=== PATIENT | male | born 1980 | race Caucasian/White ===

== ENCOUNTER 2019-11-28 01:21 | Emergency (ER) | payer BC, SELFPAY ==
[2019-11-28 01:25] VITALS: BP 136/84; PULSE 73; RESP 16; TEMP 36.6; O2SAT 98
--- NOTE | 2019-11-28 01:35 | ED.GENADUL_ITS ---
Discharge Plan Disposition Patient Disposition: HOME Condition: Good Discharge Details Chief Complaint: Laceration Clinical Impression: Laceration of brow without complication Primary Care Provider: Perry Morales ED Provider: Miles Steiner Home Meds and New Rx's Prescriptions: Continued metoprolol tartrate 25 MG tablet 25 mg PO PRN PRNQty: 20 RF: 0 levothyroxine [Synthroid] 175 mcg tablet 175 mcg PO DAILY RF: 0 Discharge Instructions Instructions: Skin Adhesive Care (ED), Facial Laceration (ED) Additional Instructions: The skin glue and Steri-Strips will function for wound healing. Your tetanus has been updated today. Please leave the dressing on for 24 hours, change the bandage daily. Do your best to keep the area dry and clean for the next 7 to 10 days. Do not directly soak the area. Watch for any signs of infection and return if any increasing redness, swelling, pain, drainage. You may remove the strips gently with soap and water after 7 to 10 days. Referrals: Perry Morales [Primary Care Provider] - Medical Decision Making 39-year-old male with past medical history of thyroid disorder presents for a left brow laceration. Patient states that he woke up this evening after a dream and was hit in the left brow by a board that he had lying up against a wall. He came to the ER for further evaluation. Uncertain as to when his last tetanus shot was. He denies any numbness tingling weakness vision changes. The board was relatively small. Laceration is present over the left brow. No other complaints at this time. No other modifying factors. Exam demonstrates a small 1 cm notably superficial laceration over the left brow, no deep component whatsoever. More so a slight shaving under the skin. Able to raise his eyebrow well, no vision changes. Physical exam otherwise shows no signs of trauma. Discussed sutures versus skin glue, based on the current scenario, and the notable superficial component, we jointly elected for the skin glue and Steri-Strips. This was performed, patient tolerated this well. We will update tetanus here. Discussed red flags which to return. I have extensively reviewed the treatment plan and discharge instructions with the patient. I have addressed all patient concerns at this time. The patient was made aware of what symptoms to monitor for that would warrant a return to the emergency department. Discussed the plan with the patient, they demonstrate verbal understanding and agreement with our assessment and plan at this time. HPI General Date/Time Provider Initiated Documentation: 11/28/19 01:23 . HPI Narrative: 39-year-old male with past medical history of thyroid disorder presents for a left brow laceration. Patient states that he woke up this evening after a dream and was hit in the left brow by a board that he had lying up against a wall. He came to the ER for further evaluation. Uncertain as to when his last tetanus shot was. He denies any numbness tingling weakness vision changes. The board was relatively small. Laceration is present over the left brow. No other complaints at this time. No other modifying factors. Related Data Home Medications Medication Instructions Recorded Confirmed metoprolol tartrate 25 mg PO PRN PRN #20 tab 07/02/17 11/28/19 levothyroxine [Synthroid] 175 mcg PO DAILY 11/28/19 11/28/19 Previous Rx's Medication Instructions Recorded metoprolol tartrate 25 mg PO PRN PRN #20 tab 07/02/17 Allergies Allergy/AdvReac Type Severity Reaction Status Date / Time loratadine [From Claritin] AdvReac Intermediate Other (See Unverified 11/28/19 01:29 Comment) General Stated Complaint: Laceration XENIA: 4 Review of Systems All systems reviewed & are unremarkable except as noted in HPI and below [facility], [facility] Medical History Hypothyroidism (Chronic) Social History Smoking/Tobacco Use Status: Current every day Alcohol Intake: current Drug use: Never Substance use type: does not use Do you feel safe at home: Yes Do you feel safe in your relationship?: Yes Exam Narrative Exam Narrative: 1.Const: Well-nourished, Well-developed, appearing stated age 2.Eyes: PERRL, no conjunctival injection, and symmetrical lids. 3.ENT: Atraumatic external nose and ears. Moist MM. Neck: Symmetric, trachea midline, No thyromegaly. 4.CVS: +S1/S2, No murmurs or gallops. Peripheral pulses 2+ and equal in all extremities. Brisk capillary refill in all extremities. 5.RESP: Unlabored respiratory effort. Clear to auscultation bilaterally. No wheezes rales or rhonchi 6.GI: Soft, Nontender/Nondistended, No hepatosplenomegaly. No guarding or rebound. 7.MSK: Normocephalic/Atraumatic, Extremities w/o deformity or ttp No cyanosis or clubbing, Normal movement of all extremities 8.Skin: Warm, Dry. Patient's left brow demonstrates a notably superficial 1 cm laceration, linear, no deep component. 9.Neuro: aerial installer II-XII grossly intact. Sensation grossly intact, no focal neurologic deficits. 10.Psych: (AAO) x3. Appropriate mood and affect Course Vital Signs Vital signs: Vital Signs Temperature 36.6 C 11/28/19 01:25 Pulse 73 11/28/19 01:25 Respiratory Rate 16 11/28/19 01:25 Blood Pressure 136/84 11/28/19 01:25 Pulse Oximetry 98 11/28/19 01:25 Temperature 36.6 C 11/28/19 01:25 Pulse 73 11/28/19 01:25 Respiratory Rate 16 11/28/19 01:25 Respiratory Effort Non-Labored 11/28/19 01:32 Blood Pressure 136/84 11/28/19 01:25 Pulse Oximetry 98 11/28/19 01:25 Pain Level 2 11/28/19 01:25 Procedures Laceration Laceration 1: Site: face (Left eyebrow) Side (If applicable): left Size (cm): 1 Description: linear Depth: simple, single layer Pre-repair: wound explored, irrigated extensively and deep structures intact Skin layer closed with: other (Skin glue and Steri-Strips)
== END 2019-11-28 01:45 | disposition home or self-care (01) ==
LOC: ER 01:52
PROVIDERS: Emergency Provider Student in an Organized Health Care Education/Training Program; PCP Family Medicine
DX: S01.112A Laceration without foreign body of left eyelid and periocular area, initial encounter (principal); W20.8XXA Other cause of strike by thrown, projected or falling object, initial encounter
CPT/HCPCS: 12011; 90471

== ENCOUNTER 2021-08-05 02:33 | Outpatient (CLI) | payer BC, SELFPAY | END 2021-08-05 02:34 | disposition home or self-care (01) | LOC: LBO 02:33 | PROVIDERS: PCP Family Medicine; Visit Provider Family Medicine ==

== ENCOUNTER 2022-08-18 01:39 | Outpatient (CLI) | payer BC, SELFPAY ==
[2022-08-18 13:32] LABS: Calculated LDL 207 mg/dL (<100); Cholesterol 285 mg/dL (<200); HDL Cholesterol 60 mg/dL (40-60); TSH 0.73 uIU/mL (0.36-3.74); Triglyceride 91 mg/dL (<150)
== END 2022-08-18 01:40 | disposition home or self-care (01) ==
LOC: LOS 01:39
PROVIDERS: PCP Family Medicine; Visit Provider Family Medicine
DX: E89.0 Postprocedural hypothyroidism (principal); Z13.220 Encounter for screening for lipoid disorders; Z13.6 Encounter for screening for cardiovascular disorders
CPT/HCPCS: 36415; 80061; 84443

== ENCOUNTER 2023-08-17 01:53 | Outpatient (CLI) | payer BC, SELFPAY ==
[2023-08-17 12:40] LABS: Anion Gap 7.4 mmol/L (3-11); BUN 12 mg/dL (7-18); CO2 28.6 mmol/L (21.0-32.0); CREATININE 1.2 mg/dL (0.70-1.30); Calcium 9.1 mg/dL (8.5-10.1); Calculated LDL 243 mg/dL (<100); Chloride 105 mmol/L (98-107); Cholesterol 334 mg/dL (<200); Estimated GFR 77.92 (mL/min/1.73m2); Glucose 93 mg/dL (74-106); HDL Cholesterol 63 mg/dL (40-60); Potassium 4.2 mmol/L (3.5-5.1); Sodium 141 mmol/L (136-145); TSH 1.97 uIU/Ml (0.36-3.74); Triglyceride 140 mg/dL (<150)
== END 2023-08-17 01:54 | disposition home or self-care (01) ==
LOC: LOS 01:53
PROVIDERS: PCP Family Medicine; Visit Provider Family Medicine
DX: E89.0 Postprocedural hypothyroidism (principal); E78.2 Mixed hyperlipidemia
CPT/HCPCS: 36415; 80048; 80061; 84443

== ENCOUNTER 2024-09-16 02:44 | Outpatient (CLI) | payer BC, SELFPAY ==
[2024-09-16 12:46] LABS: Anion Gap 5.6 mmol/L (3-11); BUN 10 mg/dL (7-18); CO2 30.4 mmol/L (21.0-32.0); Calcium 9.4 mg/dL (8.5-10.1); Calculated LDL 120 mg/dL (<100); Chloride 104 mmol/L (98-107); Cholesterol 220 mg/dL (<200); Estimated GFR 96.37 (mL/min/1.73m2); Glucose 104 mg/dL (74-106); HDL Cholesterol 57 mg/dL (>or=40); Potassium 4.2 mmol/L (3.5-5.1); Sodium 140 mmol/L (136-145); TSH 1.21 uIU/mL (0.36-3.74); Triglyceride 219 mg/dL (<150)
== END 2024-09-16 02:45 | disposition home or self-care (01) ==
LOC: LOS 02:44
PROVIDERS: PCP Family Medicine; Visit Provider Family Medicine
DX: Z13.1 Encounter for screening for diabetes mellitus (principal); E78.2 Mixed hyperlipidemia; E89.0 Postprocedural hypothyroidism
CPT/HCPCS: 36415; 80048; 80061; 84443